=== PATIENT | male | born 1965 | race Caucasian/White ===

== ENCOUNTER 2018-12-08 12:46 | Emergency (ER) | payer SELFPAY ==
[2018-12-08] MEDS ORDERED: Lactated Ringers 1,000 ML IV SCH (13:00)
[2018-12-08 13:02] VITALS: BP 135/81; PULSE 128
[2018-12-08] MEDS ORDERED: Ondansetron 4 MG/2 ML SDV IVPUSH ONE (13:05)
[2018-12-08] MEDS ORDERED: Aspirin 81 MG Tab.Chew PO ONE (13:07)
[2018-12-08] MEDS ORDERED: Nitroglycerin 0.4 MG Tab.SL SL PRN (13:25)
--- NOTE | 2018-12-08 13:26 | EDM.PDOC ---
ED HPI GENERAL MEDICAL PROBLEM - General Chief Complaint: Respiratory Problem Stated Complaint: POSS HEART ATTACK Time Seen by Provider: 12/08/18 12:46 - History of Present Illness INITIAL COMMENTS - FREE TEXT/NARRATIVE: 53-year-old male presents emergency room, brought in by coworkers with shortness of breath. This started a short time ago. He has some mild chest pressure with this. Patient has a history of having a mild heart attack in the past. Patient denies any drug or illicit drug use. No recent alcohol use. The patient continues to smoke. The patient is been working in a hot environment and has not been drinking much water he's been drinking lots of soda pop. Upon arrival here he is noticed to be in a sinus tachycardia - Related Data Allergies Allergy/AdvReac Type Severity Reaction Status Date / Time codeine Allergy Lethargy Verified 12/08/18 13:05 Penicillins Allergy Swelling Verified 12/08/18 13:05 topical iodine Allergy Rash Uncoded 12/03/15 22:58 Home Meds: Home Meds Potassium Chloride [Klor-Con M20] 20 meq PO Q12H #4 tab.er 12/08/18 [Rx] Past Medical History HEENT History: Reports: Impaired Vision Respiratory History: Reports: COPD Genitourinary History: Reports: Renal Calculus Musculoskeletal History: Reports: Arthritis Psychiatric History: Reports: Anxiety - Past Surgical History HEENT Surgical History: Reports: Oral Surgery Social & Family History - Living Situation & Occupation Living situation: Reports: , with Spouse, with Family Occupation: Employed ED ROS GENERAL - Review of Systems Review Of Systems: See Below Constitutional: Reports: Weakness Respiratory: Reports: Shortness of Breath. Denies: Pleuritic Chest Pain, Cough , Sputum, Hemoptysis, Other Cardiovascular: Reports: Chest Pain (Mild chest pressure). Denies: Edema, Lightheadedness, Orthopnea, Palpitations Endocrine: Reports: No Symptoms GI/Abdominal: Reports: No Symptoms : Reports: No Symptoms Musculoskeletal: Reports: No Symptoms Skin: Reports: No Symptoms Neurological: Reports: No Symptoms. Denies: Confusion, Dizziness, Headache ED EXAM, GENERAL - Physical Exam Exam: See Below Exam Limited By: No Limitations General Appearance: Mild Distress (From shortness of breath) Head: Atraumatic, Normocephalic Neck: Normal Inspection, Supple, Non-Tender, Full Range of Motion. No: Lymphadenopathy (L), Lymphadenopathy (R) Respiratory/Chest: No Respiratory Distress, Lungs Clear, Normal Breath Sounds Cardiovascular: No Edema, No Murmur, Tachycardia GI/Abdominal: Normal Bowel Sounds, Soft, Non-Tender Extremities: Normal Inspection, Normal Range of Motion, Non-Tender, No Pedal Edema Course - Vital Signs Last Recorded V/S: Last Vital Signs Temp 36.6 C 12/08/18 13:00 Pulse 128 H 12/08/18 13:00 Resp 16 12/08/18 13:00 BP 135/81 12/08/18 13:00 Pulse Ox 96 12/08/18 13:00 - Orders/Labs/Meds Orders: Active Orders 24 hr Category Date Time Status Blood Glucose Check, Bedside [RC] ONETIME Care 12/08/18 13:01 Active EKG Documentation Completion [RC] STAT Care 12/08/18 13:00 Active EKG Documentation Completion [RC] STAT Care 12/08/18 15:54 Active Chest 1V Frontal [CR] Stat Exams 12/08/18 13:00 Taken DRUG SCREEN, URINE [URCHEM] Stat Lab 12/08/18 16:01 Ordered URINALYSIS W/MICROSCOPIC [UA W/MICROSCOPIC] [URIN] Stat Lab 12/08/18 16:01 Ordered Lactated Ringers [Ringers, Lactated] 1,000 ml Med 12/08/18 13:00 Active IV ASDIRECTED Nitroglycerin [Nitrostat] Med 12/08/18 13:25 Active 0.4 mg SL Q5M PRN Potassium Chloride [KCl 10 MEQ in Water 100 ML] 10 meq Med 12/08/18 13:45 Active Premix Bag 1 bag IV Q1H Medication Orders Lactated Ringer's (Ringers, Lactated) 1,000 mls @ 999 mls/hr IV ASDIRECTED LEANDRO Last Admin: 12/08/18 13:10 Dose: 999 mls/hr Potassium Chloride 10 meq/ (Premix) 100 mls @ 100 mls/hr IV Q1H LEANDRO Stop: 12/08/18 19:44 Last Admin: 12/08/18 15:03 Dose: 100 mls/hr Infusion: 12/08/18 14:53 Dose: 100 mls/hr Admin: 12/08/18 13:53 Dose: 100 mls/hr Nitroglycerin (Nitrostat) 0.4 mg SL Q5M PRN PRN Reason: Chest Pain Labs: Laboratory Tests 12/08/18 12/08/18 12/08/18 Range/Units 12:52 12:55 12:55 WBC 11.07 H (4.23-9.07) K/mm3 RBC 5.69 (4.63-6.08) M/mm3 Hgb 18.2 H (13.7-17.5) gm/L Hct 52.8 H (40.1-51.0) % MCV 92.8 H (79.0-92.2) fl MCH 32.0 (25.7-32.2) pg MCHC 34.5 (32.2-35.5) g/dl RDW Std Deviation 49.4 H (35.1-43.9) fL Plt Count 273 (163-337) K/mm3 MPV 10.2 (9.4-12.3) fl Neutrophils % (Manual) 44 (40-60) % Band Neutrophils % 0 (0-10) % Lymphocytes % (Manual) 50 H (20-40) % Atypical Lymphs % 0 % Monocytes % (Manual) 4 (2-10) % Eosinophils % (Manual) 2 (0.8-7.0) % Basophils % (Manual) 0 L (0.2-1.2) Platelet Estimate Adequate RBC Morph Comment Normal PT 10.3 (9.7-12.0) SECONDS INR 0.94 APTT 24 (22-31) SECONDS D-Dimer, Quantitative (0.19-0.50) mg/L Sodium (136-145) mEq/L Potassium (3.5-5.1) mEq/L Chloride (98-107) mEq/L Carbon Dioxide (21-32) mEq/L Anion Gap (5-15) BUN (7-18) mg/dL Creatinine (0.7-1.3) mg/dL Est Cr Clr Drug Dosing mL/min Estimated GFR (MDRD) (>60) mL/min BUN/Creatinine Ratio (14-18) Glucose (74-106) mg/dL POC Glucose 120 H (70-105) mg/dL Calcium (8.5-10.1) mg/dL Magnesium (1.8-2.4) mg/dl Total Bilirubin (0.2-1.0) mg/dL AST (15-37) U/L ALT (16-63) U/L Alkaline Phosphatase (46-116) U/L Troponin I (0.00-0.056) ng/mL Total Protein (6.4-8.2) g/dl Albumin (3.4-5.0) g/dl Globulin gm/dL Albumin/Globulin Ratio (1-2) Ethyl Alcohol (0.00) gm% 12/08/18 12/08/18 12/08/18 Range/Units 12:55 12:55 12:55 WBC (4.23-9.07) K/mm3 RBC (4.63-6.08) M/mm3 Hgb (13.7-17.5) gm/L Hct (40.1-51.0) % MCV (79.0-92.2) fl MCH (25.7-32.2) pg MCHC (32.2-35.5) g/dl RDW Std Deviation (35.1-43.9) fL Plt Count (163-337) K/mm3 MPV (9.4-12.3) fl Neutrophils % (Manual) (40-60) % Band Neutrophils % (0-10) % Lymphocytes % (Manual) (20-40) % Atypical Lymphs % % Monocytes % (Manual) (2-10) % Eosinophils % (Manual) (0.8-7.0) % Basophils % (Manual) (0.2-1.2) Platelet Estimate RBC Morph Comment PT (9.7-12.0) SECONDS INR APTT (22-31) SECONDS D-Dimer, Quantitative < 0.19 L (0.19-0.50) mg/L Sodium 138 (136-145) mEq/L Potassium 2.9 L (3.5-5.1) mEq/L Chloride 104 (98-107) mEq/L Carbon Dioxide 22 (21-32) mEq/L Anion Gap 14.9 (5-15) BUN 18 (7-18) mg/dL Creatinine 1.2 (0.7-1.3) mg/dL Est Cr Clr Drug Dosing 89.41 mL/min Estimated GFR (MDRD) > 60 (>60) mL/min BUN/Creatinine Ratio 15.0 (14-18) Glucose 120 H (74-106) mg/dL POC Glucose (70-105) mg/dL Calcium 9.2 (8.5-10.1) mg/dL Magnesium (1.8-2.4) mg/dl Total Bilirubin 0.6 (0.2-1.0) mg/dL AST 20 (15-37) U/L ALT 41 (16-63) U/L Alkaline Phosphatase 143 H (46-116) U/L Troponin I < 0.017 (0.00-0.056) ng/mL Total Protein 7.7 (6.4-8.2) g/dl Albumin 3.8 (3.4-5.0) g/dl Globulin 3.9 gm/dL Albumin/Globulin Ratio 1.0 (1-2) Ethyl Alcohol 0.00 (0.00) gm% 12/08/18 12/08/18 Range/Units 12:55 15:34 WBC (4.23-9.07) K/mm3 RBC (4.63-6.08) M/mm3 Hgb (13.7-17.5) gm/L Hct (40.1-51.0) % MCV (79.0-92.2) fl MCH (25.7-32.2) pg MCHC (32.2-35.5) g/dl RDW Std Deviation (35.1-43.9) fL Plt Count (163-337) K/mm3 MPV (9.4-12.3) fl Neutrophils % (Manual) (40-60) % Band Neutrophils % (0-10) % Lymphocytes % (Manual) (20-40) % Atypical Lymphs % % Monocytes % (Manual) (2-10) % Eosinophils % (Manual) (0.8-7.0) % Basophils % (Manual) (0.2-1.2) Platelet Estimate RBC Morph Comment PT (9.7-12.0) SECONDS INR APTT (22-31) SECONDS D-Dimer, Quantitative (0.19-0.50) mg/L Sodium (136-145) mEq/L Potassium (3.5-5.1) mEq/L Chloride (98-107) mEq/L Carbon Dioxide (21-32) mEq/L Anion Gap (5-15) BUN (7-18) mg/dL Creatinine (0.7-1.3) mg/dL Est Cr Clr Drug Dosing mL/min Estimated GFR (MDRD) (>60) mL/min BUN/Creatinine Ratio (14-18) Glucose (74-106) mg/dL POC Glucose (70-105) mg/dL Calcium (8.5-10.1) mg/dL Magnesium 1.8 (1.8-2.4) mg/dl Total Bilirubin (0.2-1.0) mg/dL AST (15-37) U/L ALT (16-63) U/L Alkaline Phosphatase (46-116) U/L Troponin I < 0.017 (0.00-0.056) ng/mL Total Protein (6.4-8.2) g/dl Albumin (3.4-5.0) g/dl Globulin gm/dL Albumin/Globulin Ratio (1-2) Ethyl Alcohol (0.00) gm% Meds: Medications Generic Name Dose Route Start Last Admin Trade Name Freq PRN Reason Stop Dose Admin Lactated Ringer's 1,000 mls @ 999 mls/hr 12/08/18 13:00 12/08/18 13:10 Ringers, Lactated IV 999 mls/hr ASDIRECTED LEANDRO Administration Potassium Chloride 10 meq/ 100 mls @ 100 mls/hr 12/08/18 13:45 12/08/18 15:03 Premix IV 12/08/18 19:44 100 mls/hr Q1H LEANDRO Administration Nitroglycerin 0.4 mg 12/08/18 13:25 Nitrostat SL Q5M PRN Chest Pain Discontinued Medications Generic Name Dose Route Start Last Admin Trade Name Freq PRN Reason Stop Dose Admin Aspirin 324 mg 12/08/18 13:07 12/08/18 13:12 Aspirin PO 12/08/18 13:08 324 mg ONETIME ONE Administration Lactated Ringer's 500 mls @ 999 mls/hr 12/08/18 14:03 Ringers, Lactated IV 12/08/18 14:33 .BOLUS ONE Ondansetron HCl 4 mg 12/08/18 13:05 12/08/18 13:11 Zofran IVPUSH 12/08/18 13:06 4 mg ONETIME ONE Administration Potassium Chloride 40 meq 12/08/18 13:44 12/08/18 13:51 Klor-Con M20 PO 12/08/18 13:45 40 meq ONETIME ONE Administration - Re-Assessments/Exams Free Text/Narrative Re-Assessment/Exam: 12/08/18 16:31 The patient presented to the emergency room with some shortness of breath. He was tachycardic rate in the mid 130s. He was given fluids and his pulse rate did come down now he is in the 90s and feeling much better he was much better when his pulse rate was in the 115 range. And he felt much better at that point he had some nonspecific ST depression inferiorly and laterally on his initial EKG. Initial troponin was negative as was his d-dimer. Patient received a total of a liter of LR feels much better. Patient works in a hot environment and has not been keeping up on his fluids he's been drinking too much soda pop. Did discuss admission versus outpatient treatment. Patient refuses admission we will discharge having taken aspirin his potassium was low we gave him 60 mEq here in the emergency room and I will send him home with some oral potassium. Baby aspirin and get him scheduled for an outpatient stress test. Shortly after arrival the patient did receive aspirin we were giving him some nitroglycerin to see if his chest pressure improved but it is already resolved by the time this could be given. Departure - Departure Time of Disposition: 16:36 Disposition: Home, Self-Care 01 Clinical Impression: Chest discomfort, Chest pressure - Discharge Information Prescriptions: Potassium Chloride [Klor-Con M20] 20 meq PO Q12H #4 tab.er Referrals: Antelmo Yang Jr, MD [Primary Care Provider] - Forms: ED Department Discharge Additional Instructions: Return to emergency room if any questions problems or worsening symptoms. You should be contacted to have the stress test scheduled. Follow-up with Dr. Yang several days after this is done. Start baby aspirin 81 mg daily. Take the potassium as directed - My Orders Last 24 Hours: My Active Orders 12/08/18 13:00 EKG Documentation Completion [RC] STAT Chest 1V Frontal [CR] Stat Lactated Ringers [Ringers, Lactated] 1,000 ml IV ASDIRECTED 12/08/18 13:01 Blood Glucose Check, Bedside [RC] ONETIME 12/08/18 13:25 Nitroglycerin [Nitrostat] 0.4 mg SL Q5M PRN 12/08/18 13:45 Potassium Chloride [KCl 10 MEQ in Water 100 ML] 10 meq Premix Bag 1 bag IV Q1H 12/08/18 15:54 EKG Documentation Completion [RC] STAT 12/08/18 16:01 DRUG SCREEN, URINE [URCHEM] Stat URINALYSIS W/MICROSCOPIC [UA W/MICROSCOPIC] [URIN] Stat - Assessment/Plan Last 24 Hours: My Active Orders 12/08/18 13:00 EKG Documentation Completion [RC] STAT Chest 1V Frontal [CR] Stat Lactated Ringers [Ringers, Lactated] 1,000 ml IV ASDIRECTED 12/08/18 13:01 Blood Glucose Check, Bedside [RC] ONETIME 12/08/18 13:25 Nitroglycerin [Nitrostat] 0.4 mg SL Q5M PRN 12/08/18 13:45 Potassium Chloride [KCl 10 MEQ in Water 100 ML] 10 meq Premix Bag 1 bag IV Q1H 12/08/18 15:54 EKG Documentation Completion [RC] STAT 12/08/18 16:01 DRUG SCREEN, URINE [URCHEM] Stat URINALYSIS W/MICROSCOPIC [UA W/MICROSCOPIC] [URIN] Stat
[2018-12-08] MEDS ORDERED: Potassium Chloride 20 MEQ Tab.ER PO ONE (13:44)
[2018-12-08] MEDS: Potassium Chloride 10 MEQ in Premix Bag 1 BAG IV SCH ×2 (13:53→15:03)
[2018-12-08] MEDS ORDERED: Lactated Ringers 500 ML IV ONE (14:03)
--- NOTE | 2018-12-12 06:38 | CR ---
Chest: Portable view of the chest was obtained. Comparison: Prior chest x-ray of 09/04/08. Heart size and mediastinum are normal. Slight reticulonodular appearance is seen within both lungs which is an interval change from previous exam. Findings could represent interval change of interstitial fibrosis as well as mild pulmonary vascular congestion or mild bronchitis. No alveolar densities are seen to suggest pneumonia. Bony structures are grossly intact. Impression: 1. Slight reticulonodular appearance as described above. Diagnostic code #3
== END 2018-12-08 16:49 | disposition home or self-care (01) ==
LOC: JD.ED 12:46
DX: R07.89 Other chest pain (principal); Z88.0 Allergy status to penicillin; Z88.5 Allergy status to narcotic agent; Z88.8 Allergy status to other drugs, medicaments and biological substances
CPT/HCPCS: 36415; 71045; 80053; 80306; 80320; 81001; 82962; 83735; 84484; 85007; 85027; 85379; 85610; 85730; 93005; 96361; 96365; 96366; 96375; 99285; A9270; J2405; J3480; J7120; 93010; 99284; G0480

== ENCOUNTER 2021-03-27 19:48 | Emergency (ER) | payer SELFPAY ==
[2021-03-27 21:04] VITALS: BP 154/108; PULSE 96
--- NOTE | 2021-03-27 21:39 | EDM.PDOC ---
ED HPI GENERAL MEDICAL PROBLEM - General Chief Complaint: Respiratory Problem Stated Complaint: SOB COUGH IS COVID POS Time Seen by Provider: 03/27/21 21:17 Source of Information: Reports: Patient, RN Notes Reviewed History Limitations: Reports: No Limitations - History of Present Illness INITIAL COMMENTS - FREE TEXT/NARRATIVE: Patient is a 56-year-old male who presents to the ER for his cough. Patient states that his is sick with Covid pneumonia, and is hospitalized. He states that he had COVID at the end of January, beginning of February and has felt okay since then. He states that for the last 36 to 48 hours however he has developed a pretty deep cough, and general body aches. He is worried that he might have pneumonia at this time. No obvious fevers or chills, any sort of nausea vomiting or diarrhea. - Related Data Allergies Allergy/AdvReac Type Severity Reaction Status Date / Time codeine Allergy Lethargy Verified 12/08/18 13:05 Penicillins Allergy Swelling Verified 12/08/18 13:05 jesus hips Allergy Blisters Verified 03/27/21 21:00 topical iodine Allergy Rash Uncoded 12/03/15 22:58 Home Meds: Home Meds Potassium Chloride [Klor-Con M20] 20 meq PO Q12H #4 tab.er 12/08/18 [Rx] Aspirin 81 mg PO DAILY 03/27/21 [History] methylPREDNISolone [Medrol Dose Pack] 4 mg PO ASDIRECTED #1 dospk 03/27/21 [Rx] Past Medical History HEENT History: Reports: Impaired Vision Respiratory History: Reports: COPD Genitourinary History: Reports: Renal Calculus Musculoskeletal History: Reports: Arthritis Psychiatric History: Reports: Anxiety - Infectious Disease History Infectious Disease History: Reports: Novel Coronavirus - Past Surgical History HEENT Surgical History: Reports: Oral Surgery Male Surgical History: Reports: Lithotripsy (ES[facility]) Social & Family History - Tobacco Use Tobacco Use Status *Q: Former Tobacco User Used Tobacco, but Quit: Yes Month/Year Tobacco Last Used: 02/2021 - Caffeine Use Caffeine Use: Reports: Coffee, Energy Drinks, Soda - Recreational Drug Use Recreational Drug Use: No - Living Situation & Occupation Living situation: Reports: , with Spouse, with Family Occupation: Employed ED ROS GENERAL - Review of Systems Review Of Systems: Comprehensive ROS is negative, except as noted in HPI. ED EXAM, GENERAL - Physical Exam Exam: See Below Exam Limited By: No Limitations General Appearance: Alert, WD/WN, No Apparent Distress Respiratory/Chest: No Respiratory Distress, No Accessory Muscle Use, Chest Non- Tender, Decreased Breath Sounds, Rhonchi (slightly coarse breath sounds bilaterally) Cardiovascular: Normal Peripheral Pulses, Regular Rate, Rhythm, No Edema Extremities: Normal Inspection, Normal Capillary Refill Neurological: Alert, Oriented, Normal Cognition, No Motor/Sensory Deficits Psychiatric: Normal Affect, Normal Mood Skin Exam: Warm, Dry, Intact, Normal Color, No Rash Course - Vital Signs Last Recorded V/S: Last Vital Signs Temp 98.8 F 03/27/21 21:04 Pulse 96 03/27/21 21:04 Resp 20 03/27/21 21:04 BP 154/108 H 03/27/21 21:04 Pulse Ox 99 03/27/21 21:04 - Orders/Labs/Meds Orders: Active Orders 24 hr Category Date Time Status RT Post Treatment Assessment [RC] Click to Edit Care 03/27/21 22:13 Ordered RT Pre-Treatment Assessment [RC] Click to Edit Care 03/27/21 22:13 Ordered Chest 1V Frontal [CR] Stat Exams 03/27/21 21:17 Ordered COVID-19/FLU A+B/RSV [MOLEC] Stat Lab 03/27/21 21:13 Ordered Labs: Laboratory Tests 03/27/21 03/27/21 03/27/21 Range/Units 21:16 21:29 21:29 WBC 6.26 (4.23-9.07) K/mm3 RBC 5.54 (4.63-6.08) M/mm3 Hgb 17.7 H (13.7-17.5) gm/dl Hct 53.4 H (40.1-51.0) % MCV 96.4 H D (79.0-92.2) fl MCH 31.9 (25.7-32.2) pg MCHC 33.1 (32.2-35.5) g/dl RDW Std Deviation 52.2 H (35.1-43.9) fL Plt Count 196 D (163-337) K/mm3 MPV 9.8 (9.4-12.3) fl Neut % (Auto) 39.7 (34.0-67.9) % Lymph % (Auto) 39.0 (21.8-53.1) % [place] % (Auto) 16.5 H (5.3-12.2) % Eos % (Auto) 4.3 (0.8-7.0) Baso % (Auto) 0.3 (0.1-1.2) % Neut # (Auto) 2.49 (1.78-5.38) K/mm3 Lymph # (Auto) 2.44 (1.32-3.57) K/mm3 [place] # (Auto) 1.03 H (0.30-0.82) K/mm3 Eos # (Auto) 0.27 (0.04-0.54) K/mm3 Baso # (Auto) 0.02 (0.01-0.08) K/mm3 Sodium 144 (136-145) mEq/L Potassium 4.2 (3.5-5.1) mEq/L Chloride 108 H (98-107) mEq/L Carbon Dioxide 26 (21-32) mEq/L Anion Gap 14.2 (5-15) BUN 15 (7-18) mg/dL Creatinine 1.1 (0.7-1.3) mg/dL Est Cr Clr Drug Dosing 94.25 mL/min Estimated GFR (MDRD) > 60 (>60) mL/min BUN/Creatinine Ratio 13.6 L (14-18) Glucose 87 (70-99) mg/dL Calcium 8.4 L (8.5-10.1) mg/dL Total Bilirubin 0.4 (0.2-1.0) mg/dL AST 20 (15-37) U/L ALT 46 (16-63) U/L Alkaline Phosphatase 127 H (46-116) U/L C-Reactive Protein 0.8 (<1.0) mg/dL Total Protein 7.8 (6.4-8.2) g/dl Albumin 3.6 (3.4-5.0) g/dl Globulin 4.2 gm/dL Albumin/Globulin Ratio 0.9 L (1-2) Influenza Type A RNA Negative (NEGATIVE) RSV RNA (INAAT) Negative (NEGATIVE) Influenza Type B RNA Negative (NEGATIVE) Meds: Medications Discontinued Medications Generic Name Dose Route Start Last Admin Trade Name Freq PRN Reason Stop Dose Admin Albuterol 0 gm 03/27/21 22:13 Albuterol 6.7 Gm Inhaler INH 03/27/21 22:14 ONETIME ONE - Re-Assessments/Exams Free Text/Narrative Re-Assessment/Exam: 03/27/21 21:29 Patient presents to the ER for his ongoing cough and illness. Covid/flu swab was obtained at the time of triage, we will go ahead and get some basic labs and a chest x-ray as well. Departure - Departure Time of Disposition: 22:14 Disposition: Home, Self-Care 01 Condition: Good Clinical Impression: Bronchitis - Discharge Information *PRESCRIPTION DRUG MONITORING PROGRAM REVIEWED*: No *COPY OF PRESCRIPTION DRUG MONITORING REPORT IN PATIENT CAPRICE: No Prescriptions: methylPREDNISolone [Medrol Dose Pack] 4 mg PO ASDIRECTED #1 dospk Instructions: Acute Bronchitis, Adult Forms: ED Department Discharge Additional Instructions: You were evaluated in the ER today for your cough and ongoing illness. Your flu swab was negative, and Covid was positive however you were positive for Covid at beginning of the month, and you are likely to remain positive for some time. You have been given an albuterol inhaler for ongoing management may take 1 to 2 puffs every 4 hours as needed for wheezing/shortness of breath. You were given a prescription for a burst of steroids as well, please take per manufacture instructions. This medication was electronically sent to [facility]. Please monitor your symptoms, if you should get any worsening fever, or productive cough, do not hesitate to get reevaluated for ongoing illness. Sepsis Event Note (ED) - Focused Exam Vital Signs: Vital Signs Temp Pulse Resp BP Pulse Ox 03/27/21 21:04 98.8 F 96 20 154/108 H 99 - My Orders Last 24 Hours: My Active Orders 03/27/21 21:17 Chest 1V Frontal [CR] Stat 03/27/21 22:13 RT Post Treatment Assessment [RC] Click to Edit RT Pre-Treatment Assessment [RC] Click to Edit - Assessment/Plan Last 24 Hours: My Active Orders 03/27/21 21:17 Chest 1V Frontal [CR] Stat 03/27/21 22:13 RT Post Treatment Assessment [RC] Click to Edit RT Pre-Treatment Assessment [RC] Click to Edit
[2021-03-27] MEDS ORDERED: Albuterol 6.7 GM Inhaler INH ONE (22:13)
[2021-03-27 22:22] LABS: CORONAVIRUS COVID-19 NAA POSITIVE (NEGATIVE)
--- NOTE | 2021-03-28 08:30 | CR ---
Chest: Frontal view of the chest was obtained. Comparison: Prior chest x-ray of 12/08/18. Heart size and mediastinum are normal. Lungs are clear with no acute parenchymal change. Slight scoliosis is noted within the spine. Impression: 1. Nothing acute is seen on frontal chest x-ray. Diagnostic code #2
== END 2021-03-27 22:32 | disposition home or self-care (01) ==
LOC: JD.ED 19:48
DX: U07.1 COVID-19 (principal); J40 Bronchitis, not specified as acute or chronic; M19.90 Unspecified osteoarthritis, unspecified site; Z87.891 Personal history of nicotine dependence; Z88.5 Allergy status to narcotic agent; Z88.0 Allergy status to penicillin; Z91.048 Other nonmedicinal substance allergy status; Z79.82 Long term (current) use of aspirin; Z79.899 Other long term (current) drug therapy
CPT/HCPCS: 0241U; 36415; 71045; 80053; 85025; 86140; 99284; A9270

== ENCOUNTER 2023-10-04 11:29 | Inpatient (IN) | payer MEDICAID ==
[2023-10-04 11:55] LABS: BASOPHILS PERCENT AUTO 0.3 % (0.0-1.0); EOSINOPHILS ABSOLUTE AUTO 0.1 K/mm3 (0.0-0.4); EOSINOPHILS PERCENT AUTO 0.7 % (0.0-6.0); HEMATOCRIT 58.7 % (42.0-52.0); HEMOGLOBIN 20.5 gm/dl (14.0-18.0); IMMATURE GRAN ABSOLUTE AUTO 0.02 K/mm3 (0.00-0.05); IMMATURE GRAN PERCENT AUTO 0.2 % (0.0-0.4); LYMPHOCYTES ABSOLUTE AUTO 2.3 K/mm3 (1.0-4.8); MEAN CORPUSCULAR HGB CONC 34.9 g/dl (32.0-36.0); MEAN CORPUSCULAR VOLUME 91.7 fl (83.0-99.0); MONOCYTES ABSOLUTE AUTO 0.8 K/mm3 (0.0-0.8); MONOCYTES PERCENT AUTO 9.5 % (0.0-8.0); NEUTROPHILS ABSOLUTE AUTO 5.6 K/mm3 (1.8-7.7); NEUTROPHILS PERCENT AUTO 63.3 % (41.0-71.0); PLATELET COUNT,PLT 253 K/mm3 (150-400); WHITE BLOOD CELL COUNT,WBC 8.81 K/mm3 (3.9-11.3)
[2023-10-04 12:15] LABS: A/G RATIO 0.9 (1-2); ALANINE AMINOTRANSFERASE,ALT 44 U/L (16-63); ALBUMIN 3.9 g/dl (3.4-5.0); ALKALINE PHOSPHATASE 138 U/L (46-116); ASPARTATE AMNIOTRANSFERASE,AST 28 U/L (15-37); BLOOD UREA NITROGEN,BUN 19 mg/dL (7-18); BUN/CREATININE RATIO 17.3 (14-18); C-REACTIVE PROTEIN 1.98 mg/dL (<0.30); CALCIUM 9.8 mg/dL (8.5-10.1); CARBON DIOXIDE,CO2 21 mEq/L (21-32); CHLORIDE,CL 103 mEq/L (98-107); CREATININE 1.1 mg/dL (0.7-1.3); ESTIMATED GFR 79 mL/min (>60); GLUCOSE RANDOM 107 mg/dL (70-99); PROTEIN TOTAL,TP 8.5 g/dl (6.4-8.2); SODIUM,NA 137 mEq/L (136-145); TROPONIN I HIGH SENSITIVITY 5 pg/mL (<=76)
[2023-10-04] MEDS: diphenhydrAMINE 50 MG/ML SDV IVPUSH ONE (12:17)
[2023-10-04] MEDS: methylPREDNISolone Sodium Succinate 125 MG/2 ML SDV IVPUSH ONE (12:17)
[2023-10-04 12:19] LABS: LACTIC ACID 0.9 mmol/L (0.4-2.0)
[2023-10-04] MEDS: Iopamidol 612 MG/ML 30 ML SDV IVPUSH ONE (12:23)
[2023-10-04] MEDS: Iopamidol 612 MG/ML 100 ML Bottle IVPUSH ONE (12:23)
[2023-10-04] MEDS: Sodium Chloride 0.9% 10 ML Syringe FLUSH PRN ×2 (12:28→15:01)
[2023-10-04 12:36] LABS: INR 1.08; PROTHROMBIN TIME 11.4 SECONDS (9.7-12.0)
[2023-10-04 13:28] LABS: CORONAVIRUS COVID-19 NAA NEGATIVE (NEGATIVE); INFLUENZA A NAA NEGATIVE (NEGATIVE); RESPIRATORY SYNCYTIAL VIR NAA NEGATIVE (NEGATIVE)
[2023-10-04] MEDS: Aspirin 81 MG Tab.Chew PO ONE (14:05)
[2023-10-04] MEDS: Gadobenate Dimeglumine 529 MG/ML 20 ML SDV IVPUSH ONE (15:01)
[2023-10-04] MEDS: Sodium Chloride 0.9% 50 ML SDV IV PRN (15:01)
[2023-10-04] MEDS: atorvaSTATin 40 MG Tab PO ONE (15:14)
[2023-10-04] MEDS: Sodium Chloride 0.9% 500 ML IV ONE ×3 (15:31→20:00)
[2023-10-04 16:48] LABS: BILIRUBIN,URINE NEGATIVE (Negative); COLOR,URINE YELLOW (Yellow); GLUCOSE,URINE NEGATIVE (Negative); KETONES,URINE 1+ (Negative); LEUKOCYTE ESTERASE,URINE NEGATIVE (Negative); NITRITE,URINE NEGATIVE (Negative); OCCULT BLOOD,URINE TRACE-INTACT (Negative); PROTEIN,URINE TRACE (Negative)
[2023-10-04 17:07] LABS: BARBITURATE SCREEN,URINE NEGATIVE (CUTOFF=200); BENZODIAZEPINES SCREEN,URINE NEGATIVE (CUTOFF=150); BUPRENORPHINE SCREEN,URINE NEGATIVE (CUTOFF=10); METHADONE SCREEN, URINE NEGATIVE (CUT0FF=200); METHAMPHETAMINES SCREEN, URINE NEGATIVE (CUTOFF=500); OXYCODONE SCREEN,URINE NEGATIVE (CUT0FF=100); THC SCREEN,URINE 20 NG/ML NEGATIVE (CUTOFF=50)
[2023-10-04 17:10] LABS: AMPHETAMINES SCREEN, URINE NEGATIVE (CUTOFF=500)
[2023-10-04 17:12] LABS: RBC,URINE 0-5 /hpf (0-5); WBC,URINE 0-5 /hpf (0-5)
[2023-10-04 17:13] LABS: APPEARANCE,URINE CLEAR (Clear); BACTERIA,URINE OCCASIONAL /hpf (FEW); MUCUS,URINE NOT SEEN /hpf (FEW); SQUAMOUS EPITHELIAL CELLS,UR NOT SEEN /hpf (0-5)
[2023-10-04] MEDS ORDERED: Sodium Chloride 0.9% 10 ML Syringe FLUSH PRN ×2 (17:25)
[2023-10-04] MEDS ORDERED: hydrALAZINE 20 MG/ML SDV IVPUSH PRN (19:46)
[2023-10-04] MEDS: Sodium Chloride 0.9% 1,000 ML IV SCH (20:30)
[2023-10-04] MEDS ORDERED: Sodium Chloride 0.9% 1,000 ML IV SCH (21:00)
[2023-10-04] MEDS ORDERED: Sodium Chloride 0.9% 10 ML Syringe FLUSH SCH (21:00)
[2023-10-04] MEDS: diphenhydrAMINE 50 MG/ML SDV IM ONE (23:24)
[2023-10-04] MEDS: Sodium Chloride 0.9% 2,000 ML ONE (23:24)
[2023-10-04] MEDS: Sodium Chloride 0.9% 10 ML Syringe FLUSH SCH (23:24)
[2023-10-05 04:49] LABS: BASOPHILS PERCENT AUTO 0.1 % (0.0-1.0); HEMATOCRIT 52.6 % (42.0-52.0); IMMATURE GRAN ABSOLUTE AUTO 0.02 K/mm3 (0.00-0.05); IMMATURE GRAN PERCENT AUTO 0.2 % (0.0-0.4); LYMPHOCYTES ABSOLUTE AUTO 1.8 K/mm3 (1.0-4.8); MEAN CORPUSCULAR HEMOGLOBIN 31.8 pg (28.0-32.0); MEAN CORPUSCULAR HGB CONC 34.2 g/dl (32.0-36.0); MEAN CORPUSCULAR VOLUME 92.9 fl (83.0-99.0); MEAN PLATELET VOLUME 10.3 fl (9.4-12.4); MONOCYTES ABSOLUTE AUTO 0.9 K/mm3 (0.0-0.8); MONOCYTES PERCENT AUTO 8.3 % (0.0-8.0); NEUTROPHILS ABSOLUTE AUTO 8.4 K/mm3 (1.8-7.7); NEUTROPHILS PERCENT AUTO 75.4 % (41.0-71.0); PLATELET COUNT,PLT 216 K/mm3 (150-400); RED BLOOD CELL COUNT 5.66 M/mm3 (4.52-5.90); WHITE BLOOD CELL COUNT,WBC 11.13 K/mm3 (3.9-11.3)
[2023-10-05 05:46] LABS: HEMOGLOBIN A1C 5.7 %
[2023-10-05 05:50] LABS: A/G RATIO 0.8 (1-2); ALBUMIN 3.1 g/dl (3.4-5.0); ANION GAP 14.4 (5-15); BILIRUBIN TOTAL 0.6 mg/dL (0.2-1.0); EST CRCL DRUG DOSING (CG) 101.27 mL/min; TSH 1.24 uIU/mL (0.358-3.74)
[2023-10-05 05:54] LABS: POTASSIUM,K 4.4 mEq/L (3.5-5.1)
[2023-10-05] MEDS: Sodium Chloride 0.9% 500 ML IV ONE (08:00)
[2023-10-05] MEDS ORDERED: Rosuvastatin 10 MG Tab PO SCH ×2 (09:00)
[2023-10-05] MEDS: atorvaSTATin 40 MG Tab PO SCH (09:14)
[2023-10-05] MEDS: Aspirin 81 MG Tab.Chew PO SCH (09:14)
[2023-10-05] MEDS: Dextrose 5%-0.9% NaCl 1,000 ML IV SCH (09:30)
[2023-10-05] MEDS: Enoxaparin 40 MG/0.4 ML Syringe SUBCUT SCH (14:33)
[2023-10-05] MEDS: Cyanocobalamin (Vitamin B12) 1,000 MCG/ML SDV IM ONE (20:31)
[2023-10-05] MEDS: Acetaminophen 325 MG Tab PO PRN (21:48)
[2023-10-06] MEDS: Ketorolac 30 MG/ML SDV ONE (00:54)
[2023-10-06] MEDS: Ketorolac 15 MG/ML SDV IVPUSH ONE (01:17)
[2023-10-06 06:11] LABS: BASOPHILS PERCENT AUTO 0.4 % (0.0-1.0); EOSINOPHILS ABSOLUTE AUTO 0.1 K/mm3 (0.0-0.4); EOSINOPHILS PERCENT AUTO 0.6 % (0.0-6.0); HEMATOCRIT 50.2 % (42.0-52.0); HEMOGLOBIN 17.1 gm/dl (14.0-18.0); IMMATURE GRAN ABSOLUTE AUTO 0.03 K/mm3 (0.00-0.05); IMMATURE GRAN PERCENT AUTO 0.4 % (0.0-0.4); LYMPHOCYTES ABSOLUTE AUTO 3.1 K/mm3 (1.0-4.8); MEAN CORPUSCULAR HGB CONC 34.1 g/dl (32.0-36.0); MEAN CORPUSCULAR VOLUME 91.1 fl (83.0-99.0); MEAN PLATELET VOLUME 10.3 fl (9.4-12.4); MONOCYTES ABSOLUTE AUTO 0.7 K/mm3 (0.0-0.8); MONOCYTES PERCENT AUTO 8.4 % (0.0-8.0); NEUTROPHILS ABSOLUTE AUTO 4.2 K/mm3 (1.8-7.7); NEUTROPHILS PERCENT AUTO 52.2 % (41.0-71.0); PLATELET COUNT,PLT 226 K/mm3 (150-400); RED BLOOD CELL COUNT 5.51 M/mm3 (4.52-5.90); WHITE BLOOD CELL COUNT,WBC 8.07 K/mm3 (3.9-11.3)
[2023-10-06 06:31] LABS: A/G RATIO 0.8 (1-2); ALBUMIN 2.9 g/dl (3.4-5.0); ANION GAP 14.4 (5-15); BILIRUBIN TOTAL 0.9 mg/dL (0.2-1.0); CALCIUM 8.6 mg/dL (8.5-10.1); EST CRCL DRUG DOSING (CG) 101.27 mL/min; POTASSIUM,K 3.4 mEq/L (3.5-5.1); PROTEIN TOTAL,TP 6.5 g/dl (6.4-8.2)
[2023-10-06] MEDS ORDERED: Dextrose 5%-0.9% NaCl 1,000 ML IV SCH (11:30)
[2023-10-06] MEDS: Nystatin Susp 100,000 Unit/ML 5 ML UD Cup PO SCH (12:00)
[2023-10-06] MEDS: Sodium Chloride 0.9% 1,000 ML IV SCH (12:00)
[2023-10-06] MEDS: Dextrose 5%-0.9% NaCl 1,000 ML ONE (12:00)
[2023-10-06] MEDS: Sodium Chloride 0.9% 1,000 ML ONE (12:36)
[2023-10-06 15:24] VITALS: BP 152/89; PULSE 67
== END 2023-10-06 15:00 | disposition still patient (30) | DRG 64 ==
LOC: JD.ED 11:29 → JD.MS 14:34 → JD.ICU 17:04
PROVIDERS: ADMIT Family Medicine; ATTEND Family Medicine
DX: I63.511 Cerebral infarction due to unspecified occlusion or stenosis of right middle cerebral artery (principal); I63.231 Cerebral infarction due to unspecified occlusion or stenosis of right carotid arteries; G81.94 Hemiplegia, unspecified affecting left nondominant side; I10 Essential (primary) hypertension; E78.00 Pure hypercholesterolemia, unspecified; F41.9 Anxiety disorder, unspecified; J44.9 Chronic obstructive pulmonary disease, unspecified; M19.90 Unspecified osteoarthritis, unspecified site; D75.1 Secondary polycythemia; G62.9 Polyneuropathy, unspecified; E78.2 Mixed hyperlipidemia; E53.8 Deficiency of other specified B group vitamins; F17.210 Nicotine dependence, cigarettes, uncomplicated; Z88.0 Allergy status to penicillin; Z88.5 Allergy status to narcotic agent; Z88.8 Allergy status to other drugs, medicaments and biological substances; Z86.16 Personal history of COVID-19; Z79.82 Long term (current) use of aspirin; Z87.442 Personal history of urinary calculi; Z79.899 Other long term (current) drug therapy
CPT/HCPCS: 0241U; 36415; 70450; 70450-26; 70486; 70486-26; 70544; 70544-26; 70549; 70549-26; 70553; 70553-26; 71260; 71260-26; 72125; 72125-26; 74177; 74177-26; 80053; 80061; 80306; 80307; 81001; 82607; 82947; 83036; 83605; 83735; 84100; 84443; 84484; 85025; 85610; 85652; 85730; 86140; 92610-GN; 93005; 93306; 96374; 96375; 97110-GP; 97161-GP; 97530-GP; 99285-25; A9270-GY; A9577; C1758; J1200; J1650; J1885; J2919; J3420; J3490; J7030; J7042; Q9967

== ENCOUNTER 2024-04-27 19:14 | Emergency (ER) | payer MEDICAID ==
[2024-04-27 19:29] VITALS: PULSE 73
[2024-04-27 20:13] VITALS: BP 118/86
== END 2024-04-27 20:08 | disposition home or self-care (01) ==
LOC: JD.ED 19:14
DX: R04.0 Epistaxis (principal); I10 Essential (primary) hypertension; E78.00 Pure hypercholesterolemia, unspecified; Z86.16 Personal history of COVID-19; Z88.5 Allergy status to narcotic agent; Z88.0 Allergy status to penicillin; Z91.041 Radiographic dye allergy status; Z79.82 Long term (current) use of aspirin; Z79.01 Long term (current) use of anticoagulants
CPT/HCPCS: 99283

== ENCOUNTER 2024-05-15 14:49 | Emergency (ER) | payer MEDICAID ==
[2024-05-15 14:57] VITALS: BP 141/83; PULSE 98
[2024-05-15 15:31] LABS: BASOPHILS PERCENT AUTO 0.2 % (0.0-1.0); EOSINOPHILS ABSOLUTE AUTO 0.2 K/mm3 (0.0-0.4); EOSINOPHILS PERCENT AUTO 2.3 % (0.0-6.0); HEMOGLOBIN 13.9 gm/dl (14.0-18.0); IMMATURE GRAN ABSOLUTE AUTO 0.02 K/mm3 (0.00-0.05); IMMATURE GRAN PERCENT AUTO 0.2 % (0.0-0.4); LYMPHOCYTES ABSOLUTE AUTO 2.4 K/mm3 (1.0-4.8); LYMPHOCYTES PERCENT AUTO 29.3 % (24.0-44.0); MEAN CORPUSCULAR HEMOGLOBIN 30.8 pg (28.0-32.0); MEAN CORPUSCULAR HGB CONC 32.3 g/dl (32.0-36.0); MEAN CORPUSCULAR VOLUME 95.3 fl (83.0-99.0); MEAN PLATELET VOLUME 9.2 fl (9.4-12.4); MONOCYTES ABSOLUTE AUTO 0.6 K/mm3 (0.0-0.8); MONOCYTES PERCENT AUTO 6.7 % (0.0-8.0); NEUTROPHILS ABSOLUTE AUTO 5.1 K/mm3 (1.8-7.7); NEUTROPHILS PERCENT AUTO 61.3 % (41.0-71.0); PLATELET COUNT,PLT 253 K/mm3 (150-400); RED BLOOD CELL COUNT 4.51 M/mm3 (4.52-5.90)
[2024-05-15 15:40] LABS: BILIRUBIN,URINE NEGATIVE (Negative); COLOR,URINE PINK (Yellow); GLUCOSE,URINE NEGATIVE (Negative); KETONES,URINE NEGATIVE (Negative); LEUKOCYTE ESTERASE,URINE NEGATIVE (Negative); NITRITE,URINE NEGATIVE (Negative); OCCULT BLOOD,URINE 3+ (Negative); PH,URINE 6.5 (5.0-8.0); PROTEIN,URINE 1+ (Negative); UROBILINOGEN,URINE 0.2 (0.2-1.0)
[2024-05-15 16:06] LABS: A/G RATIO 0.9 (1-2); ALBUMIN 3.4 g/dl (3.4-5.0); ANION GAP 14.4 (5-15); BILIRUBIN TOTAL 0.2 mg/dL (0.2-1.0); CREATININE 0.8 mg/dL (0.7-1.3); EST CRCL DRUG DOSING (CG) 131.7 mL/min; POTASSIUM,K 4.4 mEq/L (3.5-5.1); PROTEIN TOTAL,TP 7.2 g/dl (6.4-8.2)
[2024-05-15 16:27] LABS: APPEARANCE,URINE SLT CLOUDY (Clear)
[2024-05-15 16:28] LABS: BACTERIA,URINE FEW /hpf (FEW); MUCUS,URINE FEW /hpf (FEW); RBC,URINE 75-100 /hpf (0-5); SQUAMOUS EPITHELIAL CELLS,UR 0-5 /hpf (0-5); WBC,URINE 0-5 /hpf (0-5)
== END 2024-05-15 17:19 | disposition home or self-care (01) ==
LOC: JD.ED 14:49
DX: N13.2 Hydronephrosis with renal and ureteral calculous obstruction (principal); I10 Essential (primary) hypertension; E78.00 Pure hypercholesterolemia, unspecified; J44.9 Chronic obstructive pulmonary disease, unspecified; Z91.041 Radiographic dye allergy status; Z88.5 Allergy status to narcotic agent; Z79.82 Long term (current) use of aspirin; Z86.16 Personal history of COVID-19
CPT/HCPCS: 36415; 74176; 74176-26; 80053; 81001; 85025; 99284

== ENCOUNTER 2024-05-21 16:11 | Emergency (ER) | payer MEDICAID ==
[2024-05-21 17:12] LABS: BASOPHILS PERCENT AUTO 0.4 % (0.0-1.0); EOSINOPHILS ABSOLUTE AUTO 0.2 K/mm3 (0.0-0.4); EOSINOPHILS PERCENT AUTO 2.4 % (0.0-6.0); HEMATOCRIT 44.8 % (42.0-52.0); HEMOGLOBIN 15.1 gm/dl (14.0-18.0); IMMATURE GRAN ABSOLUTE AUTO 0.02 K/mm3 (0.00-0.05); IMMATURE GRAN PERCENT AUTO 0.3 % (0.0-0.4); LYMPHOCYTES PERCENT AUTO 26.2 % (24.0-44.0); MEAN CORPUSCULAR HEMOGLOBIN 31.1 pg (28.0-32.0); MEAN CORPUSCULAR HGB CONC 33.7 g/dl (32.0-36.0); MEAN CORPUSCULAR VOLUME 92.2 fl (83.0-99.0); MEAN PLATELET VOLUME 9.5 fl (9.4-12.4); MONOCYTES ABSOLUTE AUTO 0.7 K/mm3 (0.0-0.8); MONOCYTES PERCENT AUTO 8.5 % (0.0-8.0); NEUTROPHILS ABSOLUTE AUTO 4.8 K/mm3 (1.8-7.7); NEUTROPHILS PERCENT AUTO 62.2 % (41.0-71.0); PLATELET COUNT,PLT 256 K/mm3 (150-400); RED BLOOD CELL COUNT 4.86 M/mm3 (4.52-5.90); WHITE BLOOD CELL COUNT,WBC 7.63 K/mm3 (3.9-11.3)
[2024-05-21] MEDS: Sodium Chloride 0.9% 1,000 ML IV STA (17:23)
[2024-05-21] MEDS: Ketorolac 30 MG/ML SDV IVPUSH ONE (17:24)
[2024-05-21] MEDS: Ondansetron 4 MG/2 ML SDV IVPUSH ONE (17:24)
[2024-05-21] MEDS: Sodium Chloride 0.9% 10 ML Syringe FLUSH PRN (17:25)
[2024-05-21] MEDS: HYDROmorphone 0.5 MG/0.5 ML Syringe IVPUSH ONE (17:25)
[2024-05-21 17:35] VITALS: BP 120/73; PULSE 76
[2024-05-21 17:41] LABS: A/G RATIO 0.9 (1-2); ALBUMIN 3.7 g/dl (3.4-5.0); ANION GAP 13.1 (5-15); BILIRUBIN TOTAL 0.2 mg/dL (0.2-1.0); BUN/CREATININE RATIO 15.5 (14-18); CALCIUM 9.5 mg/dL (8.5-10.1); CREATININE 1.1 mg/dL (0.7-1.3); EST CRCL DRUG DOSING (CG) 89.08 mL/min; POTASSIUM,K 4.1 mEq/L (3.5-5.1); PROTEIN TOTAL,TP 7.8 g/dl (6.4-8.2)
[2024-05-21 17:52] LABS: BILIRUBIN,URINE NEGATIVE (Negative); COLOR,URINE YELLOW (Yellow); GLUCOSE,URINE NEGATIVE (Negative); KETONES,URINE NEGATIVE (Negative); LEUKOCYTE ESTERASE,URINE NEGATIVE (Negative); NITRITE,URINE NEGATIVE (Negative); OCCULT BLOOD,URINE 3+ (Negative); PROTEIN,URINE TRACE (Negative); UROBILINOGEN,URINE 0.2 (0.2-1.0)
[2024-05-21 18:24] LABS: APPEARANCE,URINE CLOUDY (Clear); RBC,URINE >100 /hpf (0-5); SQUAMOUS EPITHELIAL CELLS,UR 0-5 /hpf (0-5); WBC,URINE 0-5 /hpf (0-5)
[2024-05-21 18:25] LABS: BACTERIA,URINE FEW /hpf (FEW); CALCIUM OXALATE CRYSTALS,URINE FEW; MUCUS,URINE FEW /hpf (FEW)
== END 2024-05-21 19:23 | disposition home or self-care (01) ==
LOC: JD.ED 16:11
DX: N13.2 Hydronephrosis with renal and ureteral calculous obstruction (principal); I10 Essential (primary) hypertension; E78.00 Pure hypercholesterolemia, unspecified; J44.9 Chronic obstructive pulmonary disease, unspecified; M19.90 Unspecified osteoarthritis, unspecified site; Z86.16 Personal history of COVID-19; Z88.0 Allergy status to penicillin; Z88.5 Allergy status to narcotic agent; Z91.041 Radiographic dye allergy status; Z91.048 Other nonmedicinal substance allergy status; Z79.82 Long term (current) use of aspirin; Z79.899 Other long term (current) drug therapy
CPT/HCPCS: 36415; 74176; 80053; 81001; 83690; 85025; 96361; 96374; 96375; 99284; J1885; J2405; J7030

== ENCOUNTER 2025-02-06 19:45 | Emergency (ER) | payer MEDICAID ==
[2025-02-06] MEDS: Ketorolac 30 MG/ML SDV IVPUSH ONE (20:13)
[2025-02-06] MEDS: Orphenadrine 60 MG/2 ML Inj IV ONE (20:13)
[2025-02-06 21:37] LABS: BASOPHILS ABSOLUTE AUTO 0.0 K/mm3 (0.0-0.2); BASOPHILS PERCENT AUTO 0.2 % (0.0-1.0); EOSINOPHILS ABSOLUTE AUTO 0.0 K/mm3 (0.0-0.4); EOSINOPHILS PERCENT AUTO 0.0 % (0.0-6.0); IMMATURE GRAN ABSOLUTE AUTO 0.12 K/mm3 (0.00-0.05); IMMATURE GRAN PERCENT AUTO 0.7 % (0.0-0.4); LYMPHOCYTES ABSOLUTE AUTO 1.0 K/mm3 (1.0-4.8); LYMPHOCYTES PERCENT AUTO 5.4 % (24.0-44.0); MEAN PLATELET VOLUME 9.3 fl (9.4-12.4); MONOCYTES ABSOLUTE AUTO 1.3 K/mm3 (0.0-0.8); MONOCYTES PERCENT AUTO 7.5 % (0.0-8.0); NEUTROPHILS ABSOLUTE AUTO 15.5 K/mm3 (1.8-7.7); NEUTROPHILS PERCENT AUTO 86.2 % (41.0-71.0); NRBC ABSOLUTE 0.00 (0.00-0.02); NRBC PERCENT 0.0 % (0.0-0.2); PLATELET COUNT,PLT 251 K/mm3 (150-400); RED BLOOD CELL COUNT 5.31 M/mm3 (4.52-5.90); WHITE BLOOD CELL COUNT,WBC 17.92 K/mm3 (3.9-11.3)
[2025-02-06 21:58] LABS: A/G RATIO 0.9 (1-2); ALANINE AMINOTRANSFERASE,ALT 50.0 U/L (16-63); ASPARTATE AMNIOTRANSFERASE,AST 35.0 U/L (15-37); BILIRUBIN TOTAL 0.4 mg/dL (0.2-1.0); BLOOD UREA NITROGEN,BUN 15.0 mg/dL (7-18); CARBON DIOXIDE,CO2 25.0 mEq/L (21-32); CHLORIDE,CL 107.0 mEq/L (98-107); CREATININE 1.5 mg/dL (0.7-1.3); EST CRCL DRUG DOSING (CG) 66.23 mL/min; ESTIMATED GFR 54.0 mL/min (>60); GLUCOSE RANDOM 89.0 mg/dL (70-99); POTASSIUM,K 4.7 mEq/L (3.5-5.1); PROTEIN TOTAL,TP 7.9 g/dl (6.4-8.2); SODIUM,NA 143.0 mEq/L (136-145)
[2025-02-06 22:00] LABS: ETHANOL BLOOD MEDICAL 0.0 gm% (0.00)
[2025-02-06 23:05] LABS: CREATINE KINASE,CK 662.0 U/L (39-308)
[2025-02-07 01:36] LABS: CREATINE KINASE,CK 1208 U/L (39-308)
[2025-02-07 01:37] LABS: TROPONIN I HIGH SENSITIVITY 200 pg/mL (<=76)
[2025-02-07] MEDS: Heparin Sodium 5,000 Units/ML Vial IVPUSH ONE (01:54)
[2025-02-07] MEDS: Heparin Sodium/D5W 250 ML IV SCH (01:55)
[2025-02-07 03:17] VITALS: BP 130/82; PULSE 94
== END 2025-02-07 03:15 ==
LOC: JD.ED 19:45
DX: I21.4 Non-ST elevation (NSTEMI) myocardial infarction (principal); E86.0 Dehydration; I10 Essential (primary) hypertension; J44.9 Chronic obstructive pulmonary disease, unspecified; E78.00 Pure hypercholesterolemia, unspecified; M19.90 Unspecified osteoarthritis, unspecified site; Z86.16 Personal history of COVID-19; F17.200 Nicotine dependence, unspecified, uncomplicated; Z88.0 Allergy status to penicillin; Z88.5 Allergy status to narcotic agent; Z88.8 Allergy status to other drugs, medicaments and biological substances; Z79.82 Long term (current) use of aspirin; Z79.899 Other long term (current) drug therapy
CPT/HCPCS: 36415; 71046; 80053; 80307; 82550; 83605; 83735; 84484; 85025; 85730; 86140; 87040; 93005; 96361; 96365; 96375; 99285; A9270; J1644; J1885; J2360; J7030; 93010